=== PATIENT | male | born 1980 | race Caucasian/White ===

== ENCOUNTER 2019-12-19 08:15 | Emergency (ER) | payer OTHER ==
[~2019-12-19] VITALS: Ht 172.7 cm; Wt 68.0 kg
[2019-12-19] MEDS ORDERED: PRINIVIL20 M1 PO (08:28)
[2019-12-19 08:37] LABS: URINE BILIRUBIN NEGATIVE (Negative); URINE BLOOD NEGATIVE (Negative); URINE CLARITY CLEAR; URINE COLOR YELLOW; URINE GLUCOSE-RANDOM NEGATIVE (Negative); URINE KETONES TRACE (Negative); URINE LEUKOCYTES-REFLEX NEGATIVE (Negative); URINE NITRITE-REFLEX NEGATIVE (Negative); URINE PROTEIN TRACE (Negative)
[2019-12-19 09:01] LABS: ABSOLUTE BASOPHILS 0.1 thou/uL (0.0-0.2); ABSOLUTE LYMPHOCYTES 0.6 thou/uL (0.8-5.3); ABSOLUTE MONOCYTES 1.8 thou/uL (0.0-1.2); ABSOLUTE NEUTROPHILS 18.8 thou/uL (1.6-8.1); BASOPHILS 0.3 %; HEMATOCRIT 35.8 % (42.0-52.0); HEMOGLOBIN 12.7 gm/dL (14.0-18.0); LYMPHOCYTES 2.8 %; MCH 31.4 pg (26.0-34.0); MCHC 35.5 g/dL (28.0-37.0); MCV 88.6 fL (80.0-100.0); MONOCYTES 8.7 %; MPV 7.1 fl. (7.2-11.1); NUCLEATED RBCS 0 /100WBC; PLATELET COUNT* 272 thou/uL (150-400); POLYS 88.2 %; RBC 4.04 mil/uL (4.50-6.00); RDW-CV 12.4 % (10.5-14.5); WBC 21.3 thou/uL (4.0-11.0)
[2019-12-19 09:12] LABS: ALBUMIN 3.4 g/dL (3.4-5.0); CALCIUM 8.6 mg/dL (8.5-10.1); CREATININE 1.2 mg/dL (0.6-1.3); POTASSIUM 3.3 mmol/L (3.5-5.1); TOTAL BILIRUBIN 2.2 mg/dL (<0.1-1.0)
[2019-12-19] MEDS ORDERED: IBUPROFEN 800800 MG PO (10:28)
[2019-12-19] MEDS ORDERED: KEFLEX500 M1 PO (10:28)
[2019-12-19] MEDS ORDERED: HYDROCODON-ACE1 EAC7 PO (10:28)
[2019-12-19 10:40] VITALS: BP 103/65
== END 2019-12-19 10:40 | disposition home or self-care (01) ==
LOC: M.ERS 08:15
PROVIDERS: Personal Emergency Response Attendant
DX: N45.3 Epididymo-orchitis (principal); I10 Essential (primary) hypertension

== ENCOUNTER 2021-02-13 03:39 | Emergency (ER) | payer OTHER ==
[~2021-02-13] VITALS: Ht 172.7 cm; Wt 65.8 kg
[~2021-02-13 03:39] MED LIST: HYDROCODON-ACE1 EAC7 PO; IBUPROFEN 800800 MG PO; KEFLEX500 M1 PO; PRINIVIL20 M1 PO
[2021-02-13 04:35] VITALS: BP 112/77
== END 2021-02-13 04:35 | disposition home or self-care (01) ==
LOC: M.ERS 03:39
DX: T16.2XXA Foreign body in left ear, initial encounter (principal); I10 Essential (primary) hypertension; W22.8XXA Striking against or struck by other objects, initial encounter; Y93.89 Activity, other specified; Y92.89 Other specified places as the place of occurrence of the external cause; Y99.8 Other external cause status